=== PATIENT | female | born 1970 | race Caucasian/White ===

== ENCOUNTER 2021-07-29 16:17 | Emergency (ER) | payer BC ==
[2021-07-29 17:22] VITALS: BP 126/66; TEMP 98.3
--- NOTE | 2021-07-29 18:36 | ED ---
General Adult HPI - General Chief complaint: Upper Respiratory Infection Stated complaint: covid+, SOB Time Seen by Provider: 07/29/21 18:20 Source: patient, RN notes reviewed, old records reviewed Mode of arrival: ambulatory Limitations: no limitations - History of Present Illness Initial comments: 50-year-old female presenting for evaluation of coronavirus. Patient tested positive with a home test today. She's had symptoms for the past 2-3 days. She's had myalgia, chills, cough and chest heaviness. Patient is not complaining of dyspnea. No vomiting or diarrhea. She has been eating and drinking. She was not previously vaccinated. - Related Data Allergies Allergy/AdvReac Type Severity Reaction Status Date / Time acetaminophen [From Vicodin] Allergy Dyspnea Verified 07/29/21 17:23 codeine Allergy Dyspnea Verified 07/29/21 17:23 hydrocodone [From Vicodin] Allergy Dyspnea Verified 07/29/21 17:23 Penicillins Allergy Rash/Hives Verified 07/29/21 17:23 Sulfa (Sulfonamide Allergy Rash/Hives Verified 07/29/21 17:23 Antibiotics) Review of Systems ROS Statement: Those systems with pertinent positive or pertinent negative responses have been documented in the HPI. ROS Other: All systems not noted in ROS Statement are negative. Past Medical History Past Medical History: Thyroid Disorder Additional Past Medical History / Comment(s): hypothyroid History of Any Multi-Drug Resistant Organisms: None Reported Past Psychological History: Depression Smoking Status: Never smoker Past Alcohol Use History: None Reported Past Drug Use History: None Reported General Exam Limitations: no limitations General appearance: alert, in no apparent distress Head exam: Present: atraumatic, normocephalic Eye exam: Present: normal appearance, PERRL ENT exam: Present: mucous membranes dry Neck exam: Present: normal inspection. Absent: tenderness, meningismus Respiratory exam: Present: normal lung sounds bilaterally. Absent: respiratory distress, wheezes, rales, rhonchi Cardiovascular Exam: Present: regular rate, normal rhythm GI/Abdominal exam: Present: soft. Absent: distended Extremities exam: Present: normal inspection, normal capillary refill. Absent: pedal edema Neurological exam: Present: alert, oriented X3, CN II-XII intact. Absent: motor sensory deficit Psychiatric exam: Present: normal affect, normal mood Skin exam: Present: warm, dry, intact. Absent: cyanosis, diaphoretic Course Vital Signs 07/29/21 17:17 Temperature 98.3 F Pulse Rate 82 Respiratory 20 Rate Blood Pressure 126/66 O2 Sat by Pulse 99 Oximetry Medical Decision Making - Medical Decision Making 50-year-old female testing positive for coronavirus. Patient well-appearing with normal oxygenation, no respiratory distress. Patient is administered monoclonal antibodies while in the emergency department. She's given strict return parameters. She can monitor her pulse oximetry at home. She will take vitamin C, zinc, vitamin D. Disposition Clinical Impression: COVID-19 Disposition: HOME SELF-CARE Condition: Good Instructions (If sedation given, give patient instructions): Coronavirus Disease 2019 (COVID-19) Is patient prescribed a controlled substance at d/c from ED?: No Referrals: Stan Palma MD [Primary Care Provider] - 1-2 days Time of Disposition: 20:00
[2021-07-29] MEDS ORDERED: BAMLANIVIMAB (EUA) 700 MG, ETESEVIMAB (EUA) 1,400 MG in SODIUM CHLORIDE 0.9% 50 ML IVPB ONE (19:00)
[2021-07-29] MEDS ORDERED: SODIUM CHLORIDE 0.9% 50 ML IVPB ONE (19:30)
[2021-07-29] MEDS ORDERED: IBUPROFEN 600 MG TAB PO STA (19:30)
[2021-07-29 20:56] VITALS: PULSE 71; RESP 18
== END 2021-07-29 20:56 | disposition home or self-care (01) ==
LOC: EC 16:17
DX: U07.1 COVID-19 (principal); E07.9 Disorder of thyroid, unspecified; F32.A Depression, unspecified; Z88.0 Allergy status to penicillin; Z88.2 Allergy status to sulfonamides; Z88.5 Allergy status to narcotic agent
CPT/HCPCS: 99283; 96360; J3490